=== PATIENT | female | born 1980 | race Caucasian/White ===

== ENCOUNTER 2022-10-26 01:44 | Emergency (ER) | payer BC ==
[~2022-10-26] VITALS: Ht 177.8 cm; Wt 88.5 kg
--- NOTE | 2022-10-26 02:17 | NUR ---
BIB FRIEND FROM HOME C/O LOWER ABD PAIN SINCE LAST NIGHT. +NAUSEA. HX R OVARIAN CYST. PT A/OX4. TOLERATING R/A WELL WITH NO RESP DISTRESS. SAFETY MEASURES IN PLACE.
--- NOTE | 2022-10-26 02:22 | NUR ---
DR. TIA CLARK AT PT'S BEDSIDE FOR EVAL
--- NOTE | 2022-10-26 02:23 | NUR ---
URINE COLLECTED AND SENT TO LAB
[2022-10-26] MEDS ORDERED: IBUPROFEN 600 MG TABLET PO ONE (02:30)
[2022-10-26] MEDS ORDERED: IBUPROFEN 600 MG TABLET ONE (02:33)
[2022-10-26 03:01] LABS: BASOPHILS # (AUTO) 0.1 K/uL (0.0-0.2); BASOPHILS % (AUTO) 0.5 % (0.0-2.0); EOSINOPHILS % (AUTO) 0.5 % (0.0-6.0); HEMATOCRIT 34 % (33-45); HEMOGLOBIN 10.6 g/dL (11.5-14.8); LYMPHOCYTES # (AUTO) 2.2 K/uL (0.8-4.8); LYMPHOCYTES % (AUTO) 20.3 % (20.0-44.0); MEAN CORPUSCULAR HGB CONC 32 g/dl (31.0-36.0); MEAN CORPUSCULAR VOLUME 72 fL (82-100); MONOCYTES % (AUTO) 9.3 % (2.0-12.0); NEUTROPHILS # (AUTO) 7.6 K/uL (1.8-8.9); NEUTROPHILS % (AUTO) 69.4 % (43.0-81.0); PLATELET COUNT (AUTO) 325 K/uL (150-450); RED BLOOD CELL COUNT(AUTO) 4.67 MIL/uL (4.0-5.2); WHITE BLOOD COUNT (AUTO) 10.9 K/uL (4.3-11.0)
[2022-10-26 03:08] LABS: BILIRUBIN,URINE NEGATIVE (NEGATIVE); COLOR,URINE YELLOW (YELLOW); LEUKOCYTE ESTERASE ,URINE NEGATIVE (NEGATIVE); NITRITE, URINE NEGATIVE (NEGATIVE); PH,URINE 5.5 (5.0-8.0); PROTEIN,URINE NEGATIVE (NEGATIVE); UGLUCOSE NEGATIVE (NEGATIVE); UROBILINOGEN,URINE 0.2 EU/dL (0.2)
[2022-10-26 03:12] LABS: BACTERIA,URINE Rare /HPF (None Seen); RBC,URINE 0-2 /HPF (0-2); SQUAMOUS EPITHELIAL CELL,UR Few /HPF (None Seen)
[2022-10-26 03:15] LABS: CALCIUM, SERUM 8.2 mg/dL (8.5-10.1); POTASSIUM 3.9 mmol/L (3.5-5.1)
--- NOTE | 2022-10-26 03:17 | NUR ---
US TECH AT PT'S BEDSIDE
[2022-10-26 03:26] LABS: ALBUMIN 3.2 g/dL (3.4-5.0); BILIRUBIN,DIRECT 0.1 mg/dL (0.0-0.2); BILIRUBIN,TOTAL 0.2 mg/dL (0.2-1.0); TOTAL PROTEIN, SERUM 6.9 g/dL (6.4-8.2)
--- NOTE | 2022-10-26 05:31 | NUR ---
Patient discharged to home in stable condition. Written and verbal after care instructions given. Patient verbalizes understanding of instruction. PT ambulatory with a steady gait
[2022-10-26 05:37] VITALS: BP 124/75
== END 2022-10-26 05:42 | disposition home or self-care (01) ==
LOC: ER 02:07
DX: R10.2 Pelvic and perineal pain (principal); D25.0 Submucous leiomyoma of uterus
CPT/HCPCS: 36415; 76856-TC; 80048-TC; 80076-TC; 81001; 84702-TC; 85025-TC; 85730-TC